=== PATIENT | female | born 1980 | race Native Hawaiian/Other Pacific Islander ===

== ENCOUNTER 2017-03-26 10:17 | Outpatient (CLI) | payer BC ==
[2017-03-26 11:48] LABS: PLATELET COUNT 253 K/uL (152-353)
[2017-03-26 12:22] LABS: POTASSIUM 3.9 mmol/L (3.6-5.2)
== END 2017-03-26 11:20 | disposition home or self-care (01) ==
LOC: LABW 10:17
PROVIDERS: Plastic Surgery Plastic Surgery Within the Head and Neck
DX: Z01.812 Encounter for preprocedural laboratory examination (principal); Z01.818 Encounter for other preprocedural examination
CPT/HCPCS: 36415; 80048; 85027

== ENCOUNTER 2017-09-06 12:55 | Outpatient (CLI) | payer BC | END 2017-09-06 18:57 | disposition home or self-care (01) | LOC: RAD 12:55 | DX: M54.12 Radiculopathy, cervical region (principal) ==

== ENCOUNTER 2018-07-09 17:41 | Emergency (ER) | payer BC ==
[~2018-07-09] VITALS: Ht 165.1 cm; Wt 99.8 kg
[2018-07-09 17:59] VITALS: TEMP 98.8
[2018-07-09] MEDS ORDERED: ALORA0.1 MG TD (18:00)
[2018-07-09] MEDS ORDERED: BUPROPN HCL300 MG PO (18:00)
[2018-07-09 19:54] VITALS: BP 132/78
== END 2018-07-09 19:54 | disposition home or self-care (01) ==
LOC: ED 17:41
DX: J01.90 Acute sinusitis, unspecified (principal); J30.9 Allergic rhinitis, unspecified
CPT/HCPCS: 87081; 87804; 87880; 99283

== ENCOUNTER 2018-08-22 19:57 | Emergency (ER) | payer BC ==
[~2018-08-22] VITALS: Ht 165.1 cm; Wt 99.8 kg
[~2018-08-22 19:57] MED LIST: ALORA0.1 MG TD; BUPROPN HCL300 MG PO
[2018-08-22 20:12] VITALS: TEMP 98.7
[2018-08-22 22:45] VITALS: BP 155/89
== END 2018-08-22 22:45 | disposition home health service (06) ==
LOC: ED 19:57
DX: S93.402A Sprain of unspecified ligament of left ankle, initial encounter (principal); W10.9XXA Fall (on) (from) unspecified stairs and steps, initial encounter
CPT/HCPCS: 99283; L4350

== ENCOUNTER 2019-08-15 19:32 | Emergency (ER) | payer BC ==
[~2019-08-15] VITALS: Ht 165.1 cm; Wt 104.3 kg
[2019-08-15 21:55] VITALS: BP 148/88; TEMP 98.7
== END 2019-08-15 22:05 | disposition home or self-care (01) ==
LOC: ED 19:32
DX: S93.401A Sprain of unspecified ligament of right ankle, initial encounter (principal); X50.9XXA Other and unspecified overexertion or strenuous movements or postures, initial encounter; Y92.89 Other specified places as the place of occurrence of the external cause
CPT/HCPCS: 99282

== ENCOUNTER 2020-01-29 09:38 | Outpatient (CLI) | payer BC, OTHER | END 2020-01-29 20:09 | disposition home or self-care (01) | LOC: LABW 09:38 | DX: Z20.828 Contact with and (suspected) exposure to other viral communicable diseases (principal) | CPT/HCPCS: 87635; G2023; U0002 ==

== ENCOUNTER 2020-03-25 22:34 | Emergency (ER) | payer BC ==
[~2020-03-25] VITALS: Ht 165.1 cm; Wt 108.9 kg
[2020-03-25 23:26] LABS: PLATELET COUNT 236 K/uL (152-353)
[2020-03-25 23:30] LABS: POTASSIUM 3.6 mmol/L (3.6-5.2); SODIUM 142 mmol/L (136-145)
[2020-03-25 23:53] VITALS: BP 131/57; TEMP 98.5
== END 2020-03-25 23:52 | disposition home or self-care (01) ==
LOC: ED 22:34
PROVIDERS: Family Medicine
DX: K27.9 Peptic ulcer, site unspecified, unspecified as acute or chronic, without hemorrhage or perforation (principal); K21.9 Gastro-esophageal reflux disease without esophagitis
CPT/HCPCS: 36415; 80053; 82550; 82553; 84484; 85027; 93005; 99283

== ENCOUNTER 2021-05-10 12:40 | Outpatient (CLI) | payer BC, OTHER | END 2021-05-10 19:24 | disposition home or self-care (01) | LOC: RAD 12:40 | PROVIDERS: ATTEND Nurse Practitioner Family | DX: U07.1 COVID-19 (principal) ==

== ENCOUNTER 2021-05-10 18:42 | Emergency (ER) | payer BC, OTHER ==
[~2021-05-10] VITALS: Ht 165.1 cm; Wt 113.4 kg
[2021-05-10 20:15] VITALS: BP 155/62; TEMP 98.6
== END 2021-05-10 20:15 | disposition home or self-care (01) ==
LOC: ED 18:42
DX: R07.89 Other chest pain (principal); O21.0 Mild hyperemesis gravidarum; Z3A.12 12 weeks gestation of pregnancy
CPT/HCPCS: 93005; 99283

== ENCOUNTER 2021-05-15 14:11 | Outpatient (CLI) | payer BC, OTHER ==
[~2021-05-15] VITALS: Ht 162.6 cm; Wt 113.4 kg
[2021-05-15 15:43] LABS: POTASSIUM 3.2 mmol/L (3.6-5.2); SODIUM 141 mmol/L (136-145)
== END 2021-05-15 20:36 | disposition home or self-care (01) ==
LOC: INF 14:11
PROVIDERS: ATTEND Family Medicine
DX: E86.0 Dehydration (principal); R55 Syncope and collapse
CPT/HCPCS: 36591; 80053; 82550; 82553; 82728; 84484; 85379; 86140; 93005; 96360

== ENCOUNTER 2021-11-01 10:32 | Outpatient (CLI) | payer BC | END 2021-11-01 21:43 | disposition home or self-care (01) | LOC: RAD 10:32 | PROVIDERS: ATTEND Nurse Practitioner Family | DX: M41.80 Other forms of scoliosis, site unspecified (principal) ==

== ENCOUNTER 2022-11-02 14:53 | Emergency (ER) | payer BC ==
[~2022-11-02] VITALS: Ht 162.6 cm; Wt 98.0 kg
[2022-11-02 14:58] VITALS: BP 165/77; TEMP 98.9
== END 2022-11-02 16:17 | disposition home or self-care (01) ==
LOC: ED 14:53
DX: J20.9 Acute bronchitis, unspecified (principal); J02.8 Acute pharyngitis due to other specified organisms; F17.210 Nicotine dependence, cigarettes, uncomplicated; Z20.822 Contact with and (suspected) exposure to COVID-19
CPT/HCPCS: 87502; 87635; 87651; 99283; U0001

== ENCOUNTER 2022-11-20 09:07 | Outpatient (CLI) | payer BC | END 2022-11-20 19:23 | disposition home or self-care (01) | LOC: RAD 09:07 | PROVIDERS: ATTEND Registered Nurse | DX: R07.81 Pleurodynia (principal) ==

== ENCOUNTER 2022-12-15 16:10 | Outpatient (CLI) | payer BC | END 2022-12-15 20:17 | disposition home or self-care (01) | LOC: RAD 16:10 | PROVIDERS: ATTEND Nurse Practitioner Family | DX: Z78.0 Asymptomatic menopausal state (principal) ==

== ENCOUNTER 2022-12-17 12:31 | Outpatient (CLI) | payer BC | END 2022-12-17 17:00 | disposition home or self-care (01) | LOC: RAD 12:31 | PROVIDERS: ATTEND Registered Nurse | DX: R07.81 Pleurodynia (principal) ==